=== PATIENT | female | born 1990 | race Caucasian/White ===

== ENCOUNTER 2016-11-14 13:03 | Day surgery (SDC) | payer MEDICAID ==
[2016-11-14] MEDS ORDERED: PROMETHAZINE HCL 25 MG/ML INJ ONE (14:46)
[2016-11-14] MEDS ORDERED: fentaNYL 100 MCG/2 ML INJ ONE (14:47)
[2016-11-14] MEDS ORDERED: LIDOCAINE 1% 30 ML SDV ONE (15:34)
[2016-11-14] MEDS ORDERED: IOPAMIDOL (ISOVUE-M 300) 15 ML VIAL IV ONE (15:34)
[2016-11-14] MEDS ORDERED: TRIAMCINOLONE ACETONIDE 200 MG/5 ML MDV IM ONE (15:34)
== END 2016-11-14 16:15 | disposition home or self-care (01) ==
LOC: FIMAGING 13:03
PROVIDERS: ATTEND Neurological Surgery
PROC: 3E0S3BZ Introduction of Anesthetic Agent into Epidural Space, Percutaneous Approach (ICD-10-PCS; principal; 2016-11-14 15:32)
PROC: 3E0S329 Introduction of Other Anti-infective into Epidural Space, Percutaneous Approach (ICD-10-PCS; principal; 2016-11-14 15:32)
DX: M43.16 Spondylolisthesis, lumbar region (principal); M43.07 Spondylolysis, lumbosacral region
CPT/HCPCS: 0216T; 72110; 99152; J2550; J3010; J3301; Q9967

== ENCOUNTER → 2017-02-20 | Day surgery (SDC) | payer MEDICAID ==
[~2017-02-20] MED LIST: IOPAMIDOL (ISOVUE-M 300) 15 ML VIAL ONE; TRIAMCINOLONE ACETONIDE 200 MG/5 ML MDV IM ONE
== END | disposition home or self-care (01) ==
LOC: FIMAGING 13:28
PROVIDERS: ATTEND Neurological Surgery
PROC: 3E0S3BZ Introduction of Anesthetic Agent into Epidural Space, Percutaneous Approach (ICD-10-PCS; principal; 2017-02-20)
PROC: 3E0S33Z Introduction of Anti-inflammatory into Epidural Space, Percutaneous Approach (ICD-10-PCS; principal; 2017-02-20)
DX: M54.5 Low back pain (principal); M43.06 Spondylolysis, lumbar region; F17.210 Nicotine dependence, cigarettes, uncomplicated
CPT/HCPCS: J3301; Q9967